=== PATIENT | female | born 1985 | race Caucasian/White ===

== ENCOUNTER 2022-05-04 00:09 | Emergency (ER) | payer OTHER, SELFPAY ==
[2022-05-04] MEDS ORDERED: Morphine 4 MG/ML VIAL ONE ×2 (01:01→03:12)
[2022-05-04] MEDS ORDERED: Morphine 2 MG/ML VIAL ONE (01:01)
[2022-05-04 01:27] LABS: #Lymphocytes 1.5 thou/uL (1.20-3.40); #Monocytes 0.5 thou/uL (0.11-0.59); #Neutrophils 12.5 thou/uL (1.40-6.50); %Basophils 0.3 % (0.0-1.0); %Eosinophils 0.2 % (0.0-10.0); %Lymphocytes 10.3 % (21.0-51.0); %Monocytes 3.2 % (0.0-10.0); %Neutrophils 86.1 % (42.0-75.0); Mean Corpuscular HGB CONC 34.6 g/dL (32.0-36.0); Mean Corpuscular Hemoglobin 29.9 pg (27.0-31.0); Mean Corpuscular Volume 86.5 fl (78.0-98.0); Mean Platelet Volume 12.5 fL (7.4-10.4); Platelet Count 178 10x3/uL (130-400); RBC Distribution Width 11.6 % (11.5-14.5); Red Blood Cell (RBC) Count 5.02 mill/uL (4.20-5.40); White Blood Cell (WBC) Count 14.6 10x3/uL (4.8-10.8)
[2022-05-04 01:31] LABS: ALT (SGPT) 41 U/L (8-55); AST (SGOT) 18 U/L (5-34); Albumin 4.7 g/dL (3.5-5.0); Alkaline Phosphatase 63 U/L (40-110); Anion Gap 18 mmol/L (10-20); BUN (Urea Nitrogen) 14 mg/dL (7.0-18.7); Bilirubin, Total 0.3 mg/dL (0.2-1.2); Calc. Creatinine Clearance 0 mL/min (70-130); Calcium 10.5 mg/dL (7.8-10.44); Carbon Dioxide 24 mmol/L (22-29); Chloride 103 mmol/L (98-107); Estimated GFR 89; Globulin 2.5 g/dL (2.4-3.5); Glucose 163 mg/dL (70-105); Lipase 9 U/L (8-78); Potassium 4.5 mmol/L (3.5-5.1); Protein, Total 7.2 g/dL (6.0-8.3); Sodium 140 mmol/L (136-145)
[2022-05-04 03:26] LABS: RBC Morphology Normal
[2022-05-04] MEDS ORDERED: Ketorolac Tromethamine 30 MG/ML VIAL ONE (03:29)
[2022-05-04 04:10] LABS: Lactic Acid 3.2 mmol/L (0.5-2.2)
[2022-05-04 04:55] LABS: Bacteria/HPF Rare-Few HPF (None Seen); Bilirubin Negative (Negative); Blood, Urine Large (Negative); Clarity Clear (Clear); Glucose, Urine (Dipstick) Negative (Negative); Ketone, Urine 15 mg/dL (Negative); Leukocyte Trace (Negative); Nitrite Negative (Negative); Protein, Urine (Dipstick) Trace mg/dL (Neg-Trace); Squamous Epithelial 0-3 HPF (0-3); Urobilinogen 0.2 mg/dL (Less than 2); WBC/HPF 0-3 HPF (0-3); pH, Urine 7.5 (5.0-9.0)
[2022-05-04 04:57] LABS: Pregnancy Test - Urine (BHCG) Negative (Negative); Pregu Control Background? CLEAR/WHITE (CLR/WHITE); Pregu Control Bar Appear? YES (CONTROL BAR)
[2022-05-04] MEDS ORDERED: cefTRIAXone\\ROCEPHIN 1 GM VIAL ONE (08:36)
== END 2022-05-04 11:22 | disposition short-term general hospital (02) ==
LOC: BURERS 00:09
DX: N13.2 Hydronephrosis with renal and ureteral calculous obstruction (principal)
CPT/HCPCS: 36415; 74176; 80053; 81003; 81015; 81025; 83605; 83690; 85025; 87086; 96361; 96365; 96375; 96376; J0696; J1885; J2270; J2272